=== PATIENT | female | born 1960 | race Caucasian/White ===

== ENCOUNTER → 2019-05-09 13:38 | Outpatient (CLI) | payer BC, SELFPAY ==
[2016-06-23 16:44] VITALS: BMI 47.1
--- NOTE | 2019-05-08 | IMM_PTH ---
PATIENT: TRICIA GAINES LOC: [facility] U#:[id number] AGE/SX: 64/F ROOM: RE05/09/[address]: Dr. Ayo Cerda MD : 1960 BED: DIS: SPEC #: [id number] RECD: 05/10/19 10:09 STATUS: JAYLAN RESuzy #: [id number] [place]: 05/08/19 00:[address]: Ayo Cerda DEPT: IMMUNOHISTOCHEMISTRY RECD BY: Wen Mccauley ENTERED: 05/10/19 10:10 SP TYPE: IMMUNO OTHR DR: Dr. Colt Mcconnell, Tissues: B - Stomach, NOS Procedures: H Pylori (initial) PHYSICIAN & INSTITUTION [place] [id number] SPECIMEN INFORMATION: Tissue Source: B - Antral biopsy Clinical Info: Rule out celiac disease Specimen Number: [id number] CPT code: 76251 METHODOLOGY: Deparaffinized sections of prefer/formalin-fixed tissue or PAP/DQ stained slides are incubated with monoclonal/polyclonal antibodies/oligonucleotide probes. Localization is made via biotin free immunoperoxidase method. Appropriate controls are performed and reacted as expected. Results on target cell population are indicated in the following table: RESULTS: ANTIBODY / CLONE RESULT Block B H Pylori (polyclonal) negative These tests were developed and their performance characteristics determined by [facility]. They may not have been cleared or approved by the [place] Food and Drug Administration. The FDA has determined that such clearance or approval is not necessary. INTERPRETATION: B. Antral biopsy: Negative for Helicobacter pylori organisms. FA:ammy 05/10/19
--- NOTE | 2019-05-08 10:30 | EGD_PTH ---
PATIENT: TRICIA GAINES LOC: [facility] U#:[id number] AGE/SX: 64/F ROOM: RE05/09/[address]: Dr. Ayo Cerda MD : 1960 BED: DIS: SPEC #: [id number] RECD: 05/09/19 12:15 STATUS: JAYLAN OLEKSANDR #: [id number] [place]: 05/08/19 10:[address]: Ayo Cerda DEPT: SURGICAL PATHOLOGY RECD BY: Branden Llanos ENTERED: 05/09/19 13:46 SP TYPE: EGD BIOPSY OTHR DR: Dr. Colt Mcconnell DO Tissues: A - Duodenum, NOS B - Gastric mucous membrane C - COLON BIOPSY Procedures: Surgery Specimen Level IV HEADER OPERATION: EGD with biopsy; colonoscopy with biopsy PRE-OP DIAGNOSIS: Rule out celiac disease TISSUE SUBMITTED: A - Duodenum biopsy, B - Antral biopsy H/H, C - Random colon biopsies MICROSCOPIC DIAGNOSIS A. Duodenal biopsy: Mild chronic duodenitis with focal surface erosion and intact villi identified, negative for celiac disease. B. Stomach, antral biopsy: Minimal chronic gastritis. See comment. C. Random colon biopsies: Fragments of colonic mucosa with patchy chronic inflammation in the lamina propria and reactive intramucosal lymphoid aggregates. Negative for active colitis or dysplasia. FA:ammy 05/10/19 COMMENT B. The results of immunohistochemistry for Helicobacter pylori will be reported separately ([id number]). MICROSCOPIC DESCRIPTION Slides are reviewed. GROSS DESCRIPTION A - Received in fixative is one container labeled with the patient's name and designated duodenal biopsy. The specimen consists of two pinkish-vazquez biopsy fragments measuring up to 2 mm in greatest dimension. The specimen is totally submitted in one cassette. B - Received in fixative is one container labeled with the patient's name and designated antral biopsy. The specimen consists of a single pinkish-vazquez biopsy fragment measuring up to 3 mm in greatest dimension. The specimen is totally submitted in one cassette. C - Received in fixative is one container labeled with the patient's name and designated random colon biopsies. The specimen consists of multiple pinkish-vazquez biopsy fragments measuring from 2 to 3 mm in greatest dimension. The specimen is totally submitted in one cassette. / FA:ammy 05/09/19 TC:4 CPT: 13630 x3
== END ==
PROVIDERS: Family Provider Student in an Organized Health Care Education/Training Program; PCP Student in an Organized Health Care Education/Training Program; Referring Provider Internal Medicine Gastroenterology; Visit Provider Internal Medicine Gastroenterology
DX: R19.4 Change in bowel habit (principal)
CPT/HCPCS: 88305; 88342

== ENCOUNTER → 2019-11-06 12:30 | Outpatient (CLI) | payer OTHER, SELFPAY ==
[2019-11-06 13:19] LABS: D-Dimer Quantitative (DVT/PE) 0.61 FEU/ug/m (0.27-0.49)
== END ==
PROVIDERS: Family Provider Student in an Organized Health Care Education/Training Program; PCP Student in an Organized Health Care Education/Training Program; Referring Provider Family Medicine; Visit Provider Family Medicine
DX: R06.02 Shortness of breath (principal); R07.9 Chest pain, unspecified
CPT/HCPCS: 85379